=== PATIENT | male | born 1990 | race Caucasian/White ===

== ENCOUNTER 2022-08-31 13:03 | Emergency (ER) | payer OTHER, SELFPAY ==
--- NOTE | ~2022-08-31 | CT_ITS ---
CT of the Abdomen and Pelvis: Indication: Abdominal pain, history of Crohn's disease Technique: 2.5 mm axial scans were obtained through the abdomen and pelvis following intravenous adm inistration of 100 cc of Omnipaque 350. Dose reduction technique was used on this scan by utilizing a utomated exposure control and iterative reconstruction technique. The dose-length product (DLP) was 2 25.89 mGy-cm. COMPARISON: 07/02/2013 Findings: Scans through the lung bases are unremarkable. The liver, spleen, pancreas, gallbladder, adrenals and kidneys are within normal limits. No evidence of aortic aneurysm. No lymphadenopathy. There is wall thickening of numerous small bowel loops, with extensive inflammatory haziness in the m esentery, especially in the pelvis. There is also probable wall thickening of the distal sigmoid colo n and rectum, with surrounding inflammatory changes. No definite bowel obstruction seen. No definite abscess or free air. Images through the pelvis were performed. Urinary bladder unremarkable. Prostate gland and seminal ve sicles are unremarkable. No ascites. Impression: Wall thickening of multiple small bowel loops predominantly involving distal ileum, as well as probab le wall thickening of distal sigmoid colon/rectum. There are extensive inflammatory changes in the abarca rrounding mesentery. Findings are in keeping with active Crohn's disease. No bowel obstruction, abscess, or free air. Reviewed, dictated and finalized at location M. Impression: Wall thickening of multiple small bowel loops predominantly involving distal il eum, as well as probable wall thickening of distal sigmoid colon/rectum. There are extensive inflammatory changes in the surrounding mesentery. Findings are i n keeping with active Crohn's disease. No bowel obstruction, abscess, or free air.
[2022-08-31 13:10] VITALS: BP 158/99; PULSE 82; RESP 18; TEMP 36.6; O2SAT 99
[2022-08-31] MEDS: ONDANSETRON INJ 4 MG/2 ML VIAL IV PUSH (14:04)
[2022-08-31] MEDS: KETOROLAC 30 MG/ML VIAL (*BKC) IV PUSH (14:04)
[2022-08-31] MEDS: SODIUM CHLORIDE 0.9% IV 1,000 ML 999 ML IV CONT ×2 (14:05→17:04)
[2022-08-31 14:14] LABS: Basophils Percent Auto 0.3 % (0.2-1.2); Eosinophils Absolute Auto 0.2 K/mm3 (0-0.3); Eosinophils Percent Auto 1.8 % (0-4.4); Hematocrit 47.3 % (42.0-52.0); Hemoglobin 15.9 g/dL (14.0-18.0); Immature Granulocyte Absolute 0.04 K/mm3 (0.00-0.031); Immature Granulocyte Percent A 0.3 % (0-0.5); Lymphocytes Absolute Auto 1.38 K/mm3 (0.9-3.2); Lymphocytes Percent Auto 11.6 % (18.3-44.2); Mean Corpuscular HGB Conc 33.6 g/dl (32-36); Mean Corpuscular Hemoglobin 30.5 pg (26-34); Mean Corpuscular Volume 90.8 fl (80-100); Mean Platelet Volume 9.1 fl (7.4-10.4); Neutrophils Absolute Auto 9.3 K/mm3 (1.3-6.7); Platelet Count Result 223 k/mm3 (150-375); Red Blood Count 5.21 M/mm3 (4.6-6.20); Red Cell Distribution Width 12.3 % (11.5-14.5); White Blood Count 11.9 K/mm3 (4.5-10.0)
[2022-08-31 14:24] LABS: Alanine Aminotransferase 18 U/L (6-50); Albumin Level 4.4 g/dL (3.5-5.1); Alkaline Phosphatase 80 U/L (38-126); Anion Gap 8 mmol/L (8-16); Aspartate Amino Transferase 20 U/L (17-59); Blood Urea Nitrogen 17 mg/dL (9-20); Carbon Dioxide 33 mmol/L (22-30); Chloride 97 mmol/L (98-107); Estimated CRCL calculation 104 ml/min; Estimated Glomerular Filt Rate > 60; Glucose 121 mg/dL (65-110); Lipase 50 U/L (23-300); Potassium 3.5 mmol/L (3.4-5.0); Sodium 138 mmol/L (137-145)
[2022-08-31 14:25] LABS: Appearance Urine Clear (Clear); Bacteria Urine None Seen /hpf; Bilirubin Urine Negative (Negative); Blood Urine Negative (Negative); Color Urine Dark Yellow (Yellow); Glucose Urine UA Negative (Negative); Ketones Urine 4+ mg/dL (Negative); Leukocyte Esterase Ur Negative LEU/UL (Negative); Nitrate Urine Negative (Negative); Non Pathogenic Casts 0-2; Protein Urine 1+ mg/dL (Negative); RBC Urine 0-2 /hpf (0-2); Specific Grav Ur 1.032 (1.001-1.035); Squamous Epithelial Cell Urine None seen /hpf (Few); WBC Urine 0-5 /hpf; pH Urine 5.5 (5.0-9.0)
[2022-08-31 14:27] LABS: Add Urine Microscopic? YES
--- NOTE | 2022-08-31 15:12 | ED.ABDPAIN ---
HPI - Abdominal Pain General Chief Complaint: Abdominal Pain Stated Complaint: abd pain Time Seen by Provider: 08/31/22 13:18 History of Present Illness HPI narrative: 31-year-old male with history of Crohn's disease reports for evaluation of abdominal pain x3 days. Patient states his last bowel movement was Thursday and normal. He states he has felt constipated but has been able to pass gas. States his Crohn's flares usually feel like this, however they normally last 1 day. He denies fever, bodyaches, chills, melena or hematochezia, nausea, vomiting. He sees Dr. Mtz (GI at [facility]). He takes Humira biweekly and has not missed any doses. Last apt with Dr. Mtz was June. Related Data Allergies Allergy/AdvReac Type Severity Reaction Status Date / Time No Known Allergies Allergy Verified 08/31/22 13:03 Review of Systems Review of Systems: CONSTITUTIONAL: Denies fever, chills EYES: Denies visual changes, redness, or discharge. ENT: Denies rhinorrhea, congestion, sore throat, or otalgia. CARDIOVASCULAR: Denies chest pain, palpitations, or edema. RESPIRATORY: Denies cough or dyspnea. GASTROINTESTINAL: See HPI GENITOURINARY: Denies dysuria or hematuria. SKIN: Denies rash or itching. MUSCULOSKELETAL: Denies back pain, joint pain, or myalgia. NEUROLOGIC: Denies headache, numbness, dizziness, or weakness. PSYCHIATRIC: Denies anxiety or depression. [facility] Social History Social History Smoking status: Never smoker Exam Narrative: GENERAL: Well-appearing, in no acute distress. HEAD: Normocephalic EYES: PERRLA ENT: Nares clear. Mucous membranes moist. Oropharynx without tonsillar hypertrophy exudate or other lesions. NECK: Supple. CHEST: No respiratory distress. Clear to auscultation, no adventitious breath sounds. HEART: Regular rate and rhythm. No murmur heard. Normal peripheral pulses. ABDOMEN: Normal active bowel sounds. Abdomen soft. Tenderness in the right lower and left lower quadrants. No rebound, guarding or rigidity. EXTREMITIES: Normal range of motion. No edema. SKIN: Warm, dry, no rash. NEURO: No focal deficits. Alert and oriented x3. PSYCH: Normal mood and affect. Course Vital Signs Vital signs: Vital Signs Temperature 97.9 F 08/31/22 13:10 Pulse Rate 82 08/31/22 13:10 Respiratory Rate 18 08/31/22 13:10 Blood Pressure 158/99 H 08/31/22 13:10 Pulse Oximetry 99 08/31/22 13:10 Oxygen Delivery Room Air 08/31/22 13:10 Temperature 97.9 F 08/31/22 13:10 Pulse Rate 82 08/31/22 18:06 Respiratory Rate 18 08/31/22 18:06 Blood Pressure 148/88 H 08/31/22 18:06 Pulse Oximetry 99 08/31/22 18:06 Oxygen Delivery Room Air 08/31/22 13:10 MDM - Abdominal Pain MDM Narrative Medical decision making narrative: 31-year-old male with history of Crohn's disease reports for evaluation of abdominal pain x3 days. Last BM 4 days ago. Vital stable, he is afebrile. Exam reveals a soft abdomen with tenderness in the right lower and left lower quadrant, no guarding or rigidity, no peritoneal signs. CBC with mild leukocytosis at 11.9. Chemistries largely unremarkable. Lipase normal. Urinalysis reveals 4+ ketones without evidence of UTI. CT shows wall thickening of multiple small bowel loops predominantly involving distal ileum, as well as probable wall thickening of distal sigmoid and right colon/rectum. There are extensive inflammatory changes of the surrounding mesentery. There is no evidence of bowel obstruction, abscess or free air. Findings are in keeping with active Crohn's disease. I attempted to call patient's GI physician Dr. Mtz with [facility] to discuss case without success. Therefore, I called Dr. Cortes (GI) who advised to start a prednisone taper at 40 mg decreasing by 10 mg weekly visit and to have the patient take MiraLAX for constipation. Prednisone MiraLAX sent to pharmacy. Patient received 2 L
[2022-08-31 16:21] VITALS: BP 151/91; PULSE 84; RESP 18; O2SAT 100
[2022-08-31 18:06] VITALS: BP 148/88; PULSE 82; RESP 18; O2SAT 99
== END 2022-08-31 18:00 | disposition home or self-care (01) ==
PROVIDERS: Emergency Provider Physician Assistant; PCP Emergency Medicine
DX: K50.80 Crohn's disease of both small and large intestine without complications (principal)
CPT/HCPCS: 36415; 74177; 80053; 81001; 83690; 85025; 96361; 96374; 96375; 99284; J1100; J1885; J2405; J7030; Q9967

== ENCOUNTER 2023-03-21 11:31 | Emergency (ER) | payer OTHER, SELFPAY ==
[2023-03-21 12:59] VITALS: BP 123/82; PULSE 102; RESP 18; TEMP 36.9; O2SAT 100
--- NOTE | 2023-03-21 13:24 | ED.URI ---
HPI - URI/Sore Throat General Chief Complaint: Upper Respiratory Infection Stated Complaint: sorethroat,lt earache Time Seen by Provider: 03/21/23 13:20 Source: patient Mode of arrival: ambulatory Limitations: no limitations History of Present Illness HPI Narrative: Giovanny is a 32-year-old male patient presenting to the clinic today with complaints of sore throat and left ear pain that started on . He denies any fever, chills, or headache. MD elicited complaint: sore throat and nasal congestion Related Data Home Medications Medication Instructions Recorded Confirmed adalimumab 40 mg/0.8 mL mg subcut 03/21/23 subcutaneous pen kit (Humira Pen) Allergies Allergy/AdvReac Type Severity Reaction Status Date / Time No Known Allergies Allergy Verified 08/31/22 13:03 Review of Systems Review of Systems: Pertinent positives per HPI. Patient denies any fever, chills, rash, headache, visual changes, dizziness, cough, shortness of breath, chest pain, palpitations, nausea, vomiting, diarrhea, constipation, abdominal pain, or any urinary issues. PMFSH Social History Social History Smoking status: Never smoker Comments At the time of my signature, I reviewed and agree with the nursing past medical, surgical, social, and family history. There is no relevant family history pertinent to the patient complaint. Exam Narrative: General: Well-developed, well nourished, in no apparent distress Head: Normocephalic, atraumatic Eyes: Pupils equally round and reactive to light bilaterally, EOM intact, sclera and conjunctive clear, no discharge, lids normal Ears: TMs intact and clear, ear canals clear, no drainage, grossly hearing normal. Nose: Nares patent, clear nasal discharge, no inflammation, no sinus tenderness. Mouth: Oral pharynx red with bilateral tonsillar enlargement without lesions or masses, good dentition, MMM. Neck: Supple, trachea midline, no enlargement of anterior or posterior cervical nodes, no thyroid masses or goiter palpable. Cardio: Regular rate and rhythm, s1 and s2 normal, no murmur appreciated. Resp: Clear to auscultation bilaterally, no rhonchi, rales, wheezing or rubs Course Course Emergency Course: Portions of this record may have been created with voice recognition software. Level of Care: Express Care Visit Vital Signs Vital signs: Vital Signs Temperature 36.9 C 03/21/23 12:59 Pulse Rate 102 H 03/21/23 12:59 Respiratory Rate 18 03/21/23 12:59 Blood Pressure 123/82 03/21/23 12:59 Pulse Oximetry 100 03/21/23 12:59 Oxygen Delivery Room Air 03/21/23 12:59 Temperature 36.9 C 03/21/23 12:59 Pulse Rate 102 H 03/21/23 12:59 Respiratory Rate 18 03/21/23 12:59 Blood Pressure 123/82 03/21/23 12:59 Pulse Oximetry 100 03/21/23 12:59 Oxygen Delivery Room Air 03/21/23 12:59 Vital signs reviewed MDM - URI/Sore Throat MDM Narrative Medical decision making narrative: At the time of visit patient is resting comfortably on the exam table. Patient appears to be nontoxic. Strep test was obtained was negative in the clinic today. We will send for culture. No sign of an ear infection. Supportive measures were discussed with the patient and they voiced understanding discharge instructions and agrees to treatment plan. Return precautions reviewed Differential Diagnosis Differential diagnosis: Likely upper respiratory infection, otitis media, sinusitis, viral infection, bronchitis, influenza, pharyngitis and other (COVID) Lab Data Labs: Strep Screen Presumptive Negative *(Reference Range: Negative)* Discharge Plan Discharge Clinical Impression: Pharyngitis, Otalgia of left ear Patient Disposition: Home, Self-Care Condition: Stable Instructions: Antibiotic Form, Pharyngitis (ED), Earache (ED) Additional Ins
== END 2023-03-21 13:28 | disposition home or self-care (01) ==
PROVIDERS: Emergency Provider Nurse Practitioner Family
DX: J02.9 Acute pharyngitis, unspecified (principal); H92.02 Otalgia, left ear; K50.90 Crohn's disease, unspecified, without complications
CPT/HCPCS: 87081; 87880; 99213; G0463

== ENCOUNTER 2023-03-26 12:02 | Emergency (ER) | payer OTHER, SELFPAY ==
[2023-03-26 12:17] VITALS: BP 97/68; PULSE 127; RESP 16; TEMP 37.3; O2SAT 100
--- NOTE | 2023-03-26 12:42 | ED.URI ---
HPI - URI/Sore Throat General Chief Complaint: Upper Respiratory Infection Stated Complaint: Strep Symptoms Time Seen by Provider: 03/26/23 12:35 Source: patient and family Mode of arrival: ambulatory Limitations: no limitations History of Present Illness HPI Narrative: Giovanny is a 32-year-old male patient presenting to the clinic today with complaints of severe sore throat. Symptoms started 1 week ago. Was seen in the urgent care on the and diagnosed with pharyngitis and left otalgia. Strep screen was performed at that time was negative. Strep culture came back negative as well. Patient reports that his symptoms have not improved and he is now having painful swallowing and having a hard time eating/drinking. No reported fever. MD elicited complaint: sore throat Related Data Home Medications Medication Instructions Recorded Confirmed adalimumab 40 mg/0.8 mL 40 mg subcut DIRECTED 03/21/23 03/26/23 subcutaneous pen kit (Humira Pen) Allergies Allergy/AdvReac Type Severity Reaction Status Date / Time No Known Allergies Allergy Verified 08/31/22 13:03 Review of Systems Review of Systems: Pertinent positives per HPI. Patient denies any fever, chills, rash, headache, visual changes, dizziness, cough, shortness of breath, chest pain, palpitations, nausea, vomiting, diarrhea, constipation, abdominal pain, or any urinary issues. PMFSH Social History Social History Smoking status: Never smoker Comments At the time of my signature, I reviewed and agree with the nursing past medical, surgical, social, and family history. There is no relevant family history pertinent to the patient complaint. Exam Narrative: General: Well-developed, well nourished, in no apparent distress Head: Normocephalic, atraumatic Eyes: Pupils equally round and reactive to light bilaterally, EOM intact, sclera and conjunctive clear, no discharge, lids normal Ears: TMs intact and clear, ear canals clear, no drainage, grossly hearing normal. Nose: Nares patent, no discharge, no inflammation, no sinus tenderness. Mouth: Oral pharynx with severe swelling of the tonsils left greater than right with uvula deviation to the left, good dentition, MMM. Neck: Supple, trachea midline, enlargement of anterior cervical nodes, no thyroid masses or goiter palpable. Cardio: Regular rate and rhythm, s1 and s2 normal, no murmur appreciated. Resp: Clear to auscultation bilaterally, no rhonchi, rales, wheezing or rubs Course Course Emergency Course: Portions of this record may have been created with voice recognition software. Level of Care: Express Care Visit Vital Signs Vital signs: Vital Signs Temperature 37.3 C 03/26/23 12:17 Pulse Rate 127 H 03/26/23 12:17 Respiratory Rate 16 03/26/23 12:17 Blood Pressure 97/68 L 03/26/23 12:17 Pulse Oximetry 100 03/26/23 12:17 Temperature 37.3 C 03/26/23 12:17 Pulse Rate 127 H 03/26/23 12:17 Respiratory Rate 16 03/26/23 12:17 Blood Pressure 97/68 L 03/26/23 12:17 Pulse Oximetry 100 03/26/23 12:17 Vital signs reviewed Transfer Transfered to: [facility] Transportation: Other (private car) Transfer rationale: Severe sore throat, tonsillitis, rule out peritonsillar abscess Accepting physician: Dr. Mills Transfer comments: private car MDM - URI/Sore Throat MDM Narrative Medical decision making narrative: At the time of visit patient is resting comfortably on the exam table. Patient appears pale and has a very muffled voice with trismus. I suspect he has a left peritonsillar abscess. Recommend transfer to the ER for further evaluation. Patient agrees to transfer. Contacted Dr. Mills at [facility] and she accepts patient for transfer. Patient to be transferred via private car-brother is driving. Differential Diagnosis Differential diagnosis: Likely upper respiratory infection, otitis medi
== END 2023-03-26 12:51 | disposition short-term general hospital (02) ==
PROVIDERS: Emergency Provider Nurse Practitioner Family
DX: J36 Peritonsillar abscess (principal)
CPT/HCPCS: 99212; G0463

== ENCOUNTER 2023-03-26 13:07 | Emergency (ER) | payer OTHER, SELFPAY ==
[2023-03-26] VITALS (21 sets, daily range): BP systolic 102–125; BP diastolic 63–101; PULSE 94–143; RESP 4–35; TEMP 37.3–38.8; O2SAT 96–100
--- NOTE | ~2023-03-26 | CT_ITS ---
EXAMINATION: CT soft tissue neck w con DATE: 03/26/2023 17:45 INDICATION: Sore throat, trismus. TECHNIQUE: Computed tomography (CT) of the neck was performed with 75 mL Omnipaque-350 intravenous co ntrast. Automated exposure control and iterative reconstruction technique were employed. The dose-irene gth product was 465.59 mGy-cm. COMPARISON: None FINDINGS: Bilateral palatine tonsillar enlargement, slightly greater on the left. Extensive edema of the left p eritonsillar soft tissues which extends into the retropharyngeal space, with surrounding fat strandin g. The retropharyngeal fluid is limited to the neck and does not extend below the level of C7. Irregu lar 1.1 x 1.9 x 1.5 cm fluid collection with mild rim enhancement (best seen in the dental artifact s eries images through ) in the left inferior peritonsillar tissues. Subcentimeter right thyroid nodule, requiring no additional workup at this time. The parotid glands are symmetric. Enlargemen t of the right mandibular gland. Bilateral anterior cervical chain lymph node enlargement. The super ior mediastinum is unremarkable. The airway is unremarkable. Effacement of the fat planes in the upper left neck. Normal enhancing neck arteries. The orbits are unremarkable. Visualized sinuses and mastoid air cells are well aerated. Visualized lung parenchyma is clear. Regional bones are n ormal for age. IMPRESSION: 1.1 x 1.9 x 1.5 cm left peritonsillar abscess, inferior to the left palatine tonsil. Extensive left p eritonsillar soft tissue edema, with retropharyngeal effusion that is limited to the neck. Bilateral anterior cervical lymphadenopathy. Reviewed, dictated and finalized at location K. R ROOM MANAGER IMPRESSION: 1.1 x 1.9 x 1.5 cm left peritonsillar abscess, inferior to the left palatine to nsil. Extensive left peritonsillar soft tissue edema, with retropharyngeal effu rj that is limited to the neck. Bilateral anterior cervical lymphadenopathy.
--- NOTE | 2023-03-26 16:34 | ED.GENADULT ---
HPI - General Adult General Chief complaint: Unspecified Stated complaint: st/tonsilar abscess Time Seen by Provider: 03/26/23 16:18 History of Present Illness HPI narrative: Patient is a 32 year old male with history of Crohns well controlled on Humira here with sore throat and difficulty swallowing. Patient note symptoms began around 03/18-03/19 with a sore throat. He notes that he presented to the urgent care on 03/21, was tested for strep and had a negative strep swab and culture. He has continued to worsen and today he went to the urgent care again. They referred him into the ER for concern of paratonsillar abscess. He notes difficulty swallowing, difficulty talking and dry mouth. He has not had any thing to eat or drink since this morning due to concerns for needing some sort of procedure. Denies feeling febrile but was febrile in triage. Related Data Home Medications Medication Instructions Recorded Confirmed adalimumab 40 mg/0.8 mL 40 mg subcut DIRECTED 03/21/23 03/26/23 subcutaneous pen kit (Humira Pen) Allergies Allergy/AdvReac Type Severity Reaction Status Date / Time No Known Allergies Allergy Verified 08/31/22 13:03 Review of Systems Review of Systems: All systems reviewed & are unremarkable except as noted in HPI and below PMFSH Social History Social History Smoking status: Never smoker Exam Narrative: GENERAL: Ill appearing. HEAD: Normocephalic, atraumatic. EYES: PERRLA and EOMI. ENT: Nares clear. Mucous membranes extremely dry, trismus present, difficulty with visualization of posterior pharynx. May have some left uvular deviation. Posterior pharyngeal edema present. NECK: Supple. CHEST: Clear to auscultation. No respiratory distress. HEART: Tachycardic. Normal peripheral pulses. ABDOMEN: Soft, nontender, nondistended. EXTREMITIES: Normal range of motion. No edema. SKIN: Warm, dry, no rash. NEURO: No focal deficits. Alert and oriented x3. PSYCH: Normal mood and affect. Course Course Emergency Course: Chart review performed. Patient here from urgent care with sore throat, concern for peritonsillar abscess. Triage vitals show tachycardia. Patient seen and evaluated, ill appearing. Septic lab work ordered. IVF bolus, decadron for trismus and pain, tylenol for fever. Will do CT soft tissue neck to get better visualization of posterior pharynx for paratonsillar abscess vs. deep space infection. 3g of Unasyn ordered. Patient agreeable to plan of care. CBC 15.4, sodium 127, potassium 2.9, Creatinine increased, lactic 2.2. LFTs elevated, no abdominal pain present. Pending imaging. Additional IVF ordered. CT shows 1.1 x 1.9 x 1.5 cm peritonsillar abscess inferior to the left palatine tonsil with extensive peritonsillar soft tissue edema with retropharyngeal effusion that is limited to the neck. Spoke with Dr. Walden, recommends transfer for likely emergent surgical intervention. Patients GI is Dr. Mtz through [facility]. Will start with [facility] transfer center. Spoke with Dr. Briggs from [facility]. They initially accepted for ED to ED transfer however they are on Red status and can only accept time sensitive transfers and are unable to take him at this time. They advise calling other facilities. Will reach out to [facility] transfer center. Spoke with Dr. Garcia, ENT at [facility], recommends ED to ED transfer. Dr. Oropeza from [facility] ED accepts patient for transfer. Patient updated and agreeable. Continues to support his airway without difficulty. Patient transferred to [facility] ED via EMS. Reevaluated on transfer, supports airway without difficulty. Vital Signs Vital signs: Vital Signs Temperature 99.2 F 03/26/23 13:13 Pulse Rate 143 H 03/26/23 13:13 Respiratory Rate 20 03/26/23 13:13 Blood Pressure 125/101 H 03/26/23 13:13 Pulse Oximetry 100 03/26/23 13:13 Oxygen Delivery Room Air 03/26/23 13:13 Temperature 101.8 F H 03/26/23
--- NOTE | 2023-03-26 16:35 | ECG_ITS ---
Measurements Intervals [place] Rate: 126 P: 79 [place]: 139 QRS: 57 QRSD: 106 T: 54 QT: 324 QTc: 471 Interpretive Statements SINUS TACHYCARDIA INCOMPLETE RIGT BUNDLE BRANCH BLOCK NO PREVIOUS ECG AVAILABLE FOR COMPARISON Electronically Signed On 03-27-2023 16:29:46 SOLE SKIVER by Eileen Ventura M.D.
[2023-03-26] MEDS: ACETAMINOPHEN 650 MG SUPPOSITORY RECTAL (16:57)
[2023-03-26 17:05] LABS: Basophils Absolute Auto 0.1 K/mm3 (0.0-0.1); Basophils Percent Auto 0.8 % (0.2-1.2); Eosinophils Absolute Auto 0.1 K/mm3 (0-0.3); Eosinophils Percent Auto 0.5 % (0-4.4); Hematocrit 43.8 % (42.0-52.0); Hemoglobin 15.2 g/dL (14.0-18.0); Immature Granulocyte Absolute 0.17 K/mm3 (0.00-0.031); Immature Granulocyte Percent A 1.1 % (0-0.5); Immature Platelet Fraction Pct 18.1 % (0.9-11.2); Lymphocytes Absolute Auto 0.57 K/mm3 (0.9-3.2); Lymphocytes Percent Auto 3.7 % (18.3-44.2); Mean Corpuscular HGB Conc 34.7 g/dl (32-36); Mean Corpuscular Hemoglobin 29.5 pg (26-34); Mean Corpuscular Volume 84.9 fl (80-100); Mean Platelet Volume 12.5 fl (7.4-10.4); Monocytes Absolute Auto 1.6 K/mm3 (0.1-0.6); Monocytes Percent Auto 10.5 % (2.6-8.5); Neutrophils Absolute Auto 12.8 K/mm3 (1.3-6.7); Neutrophils Percent Auto 83.4 % (45.5-73.1); Platelet Count Result 82 k/mm3 (150-375); Red Blood Count 5.16 M/mm3 (4.6-6.20); Red Cell Distribution Width 12.4 % (11.5-14.5); White Blood Count 15.4 K/mm3 (4.5-10.0)
[2023-03-26 17:13] LABS: INR 1.4; Prothrombin Time 17.8 Seconds (11.1-14.7)
[2023-03-26 17:14] LABS: Partial Thromboplastin Time 44.3 SECONDS (22.3-36.8)
[2023-03-26 17:15] LABS: Lactic Acid Reflex 2.2 mmol/L (0.7-2.0)
[2023-03-26 17:17] LABS: Platelet Estimate Decreased (Adequate); Schistocytes None Seen (NORMAL)
[2023-03-26 17:27] LABS: Alanine Aminotransferase 85 U/L (6-50); Albumin Level 3.6 g/dL (3.5-5.1); Alkaline Phosphatase 183 U/L (38-126); Anion Gap 15 mmol/L (8-16); Aspartate Amino Transferase 183 U/L (17-59); Bilirubin,Total 3.9 mg/dL (0.2-1.3); Blood Urea Nitrogen 49 mg/dL (9-20); Calcium 8.2 mg/dL (8.4-10.2); Carbon Dioxide 25 mmol/L (22-30); Chloride 87 mmol/L (98-107); Estimated CRCL calculation 77 ml/min; Estimated Glomerular Filt Rate > 60; Glucose 125 mg/dL (65-110); Potassium 2.9 mmol/L (3.4-5.0); Sodium 127 mmol/L (137-145)
[2023-03-26] MEDS: ONDANSETRON INJ 4 MG/2 ML VIAL IV PUSH (18:19)
[2023-03-26] MEDS: MORPHINE SULFATE (*CRX) 4 MG/ML INJ IV PUSH (18:19)
[2023-03-26] MEDS: POTASSIUM CHLORIDE INJ 40 MEQ in SODIUM CHLORIDE 0.9% IV 500 ML 130 MEQ IVPB (18:19)
[2023-03-26] MEDS: AMPICILLIN SULB 3 GM/NS 100 ML 3 GM/100 ML VIAL IVPB (18:19)
[2023-03-26 18:21] LABS: Monoscreen Negative (Negative); Negative Monotest Control Negative (Negative); Positive Monotest Control Positive (Positive)
[2023-03-26 18:46] LABS: Influenza A QL RT-PCR Negative (Negative); Influenza B QL RT-PCR Negative (Negative); RSV RNA, RT-PCR Negative (Negative); SARS-CoV-2 RNA PCR Negative (Negative)
[2023-03-26 18:50] LABS: CRP > 45.0 mg/dL (<1.0)
[2023-03-26] MEDS: LACTATED RINGERS 1,000 ML 999 ML IV CONT (19:55)
[2023-03-26 20:01] LABS: Reflex Lactic Acid Yes or No Add Lactic
[2023-03-26 20:19] LABS: Strep Group A RT-PCR NOT DETECTED (Negative)
[2023-03-26 20:32] LABS: Lactic Acid 2.4 mmol/L (0.7-2.0)
== END 2023-03-26 20:38 | disposition short-term general hospital (02) ==
PROVIDERS: Emergency Provider Student in an Organized Health Care Education/Training Program
DX: J36 Peritonsillar abscess (principal); E86.0 Dehydration; E87.1 Hypo-osmolality and hyponatremia; E87.6 Hypokalemia; Z20.822 Contact with and (suspected) exposure to COVID-19; K50.90 Crohn's disease, unspecified, without complications; R00.0 Tachycardia, unspecified; I45.10 Unspecified right bundle-branch block
CPT/HCPCS: 36415; 70491; 80053; 83605; 85025; 85055; 85610; 85730; 86140; 86308; 87040; 87076; 87185; 87637; 87651; 93005; 96361; 96365; 96366; 96367; 96375; 99285; A9270; J0295; J1100; J2270; J2405; J3480; J7040; J7120; Q9967